=== PATIENT | female | born 1940 | race Caucasian/White ===

== ENCOUNTER 2016-08-01 09:41 | Emergency (ER) | payer MEDICARE ==
[~2016-08-01] VITALS: Ht 165.1 cm; Wt 105.0 kg
[~2016-08-01 09:41] MED LIST: ALL220TA PO; CIPR500T4 PO; SIMV20TA PO; TRAM50TA PO; VENL25TA14 PO
[2016-08-01 09:46] VITALS: BP 137/65; PULSE 72; RESP 18; TEMP 97.5; O2SAT 95
[2016-08-01] MEDS ORDERED: VENL25TA PO (09:54)
[2016-08-01] MEDS ORDERED: BP MED (09:54)
[2016-08-01] MEDS ORDERED: METF500T PO (09:54)
[2016-08-01] MEDS ORDERED: CHOLESTEROL MED (09:54)
--- NOTE | 2016-08-01 10:04 | PD ---
HPI Chief Complaint: Fall Time Seen by Provider: 09:54 Travel History International Travel<30 days: No Contact w/Intl Traveler<30days: No Traveled to known affect area: No History of Present Illness HPI Pleasant 76-year-old female here with complaint of headache, right knee pain after fall. Patient has a history of frequent falls when using the staircase. She was eating dinner on the upper floor of [employer] when she was walking up the steps and had a fall forward. She hit her head. No LOC. She notes a right sided headache since the fall. Also right sided knee contusion, but has been able to ambulate without any difficulty. Mild, no nausea vomiting PFSH Past Medical History Depression: Yes High Cholesterol: Yes Diabetes: Yes Patient Takes Glucophage: Yes Hypertension: Yes Neurologic: Yes (HX OF BRAIN ANERYSM- SURGERY FOR) Menopausal: Yes Past Surgical History Neurologic Surgery: Yes (BRAIN ANERYSM- METAL PLATE TO LEFT SIDE OF HEAD) Social History Alcohol Use: Yes (SOCIAL) Tobacco Use: No Substance Use: No Allergies-Medications (Allergen,Severity, Reaction): Coded Allergies: No Known Allergies (Unverified , 08/01/16) Reported Meds & Prescriptions Reported Meds & Active Scripts Active Reported Metformin (Metformin HCl) 500 Mg Tab Unknown Dose PO BIDPC With meals [Bp Med] Unknown Dose [Cholesterol Med] Unknown Dose Effexor (Venlafaxine HCl) 25 Mg Tab Unknown Dose PO Q12H Review of Systems Except as stated in HPI: all other systems reviewed are Neg Physical Exam Narrative GENERAL: Pleasant elderly female in no acute distress SKIN: Focused skin assessment warm/dry. HEAD: Abrasion to the right forehead. Normocephalic. EYES: Pupils equal and round. No scleral icterus. No injection or drainage. TMs clear bilaterally ENT: No nasal bleeding or discharge. Mucous membranes pink and moist. NECK: Supple without midline tenderness palpation CARDIOVASCULAR: Regular rate and rhythm. RESPIRATORY: No accessory muscle use. GASTROINTESTINAL: Obese MUSCULOSKELETAL: No obvious deformities. No edema. Right knee with contusion/ hematoma over the fibular head but no focal tenderness to palpation. Full pain- free range of motion of the knee without obvious ligamentous laxity. Normal gait. NEUROLOGICAL: Awake and alert. No obvious cranial nerve deficits. Motor grossly within normal limits. Normal speech. PSYCHIATRIC: Appropriate mood and affect; insight and judgment normal. Data Data Last Documented VS Vital Signs Date Time Temp Pulse Resp B/P Pulse Ox O2 Delivery O2 Flow Rate FiO2 08/01/16 09:46 97.5 72 18 137/[address] Brain W/O Iv Contrast(Rout) (08/01/16 ) MDM Medical Decision Making Medical Screen Exam Complete: Yes Emergency Medical Condition: Yes Medical Record Reviewed: Yes Differential Diagnosis 76-year-old female here with complaint of headache, right knee pain after fall. Fall as mechanical, no syncope. She did hit her head, given her age and persistent headache concern for skull fracture, ICH versus closed head injury. Exam of the right knee shows contusion, full range of motion does not warrant imaging to evaluate for fracture, she has been ambulatory since without any difficulty. Narrative Course CT of the brain showed post surgical changes but no acute abnormalities. Diagnosis Primary Impression: Closed head injury Qualified Code: S09.90XA - Closed head injury, initial encounter Additional Impressions: Contusion of right knee Qualified Code: S80.01XA - Contusion of right knee, initial encounter Fall Qualified Code: W19.XXXA - Fall, initial encounter Referrals: Primary Care Physician as needed Additional Instructions: Tylenol, ibuprofen as needed for headache or knee pain. Ice the knee 20 minutes at a time 3-4 times daily to help with pain and swelling. Med/Other Pt SpecificInfo: No Change to Meds Disposition: 01 DISCHARGE HOME Condition: Stable Sari Osborne MD Aug 01, 2016 10:04
--- NOTE | 2016-08-01 10:41 | RADHPO ---
EXAM DATE/TIME: 08/01/2016 10:20 [facility] COMPARISON: No previous studies available for comparison. INDICATIONS : Tripped and fell two times in one week. RADIATION DOSE: 65.41 CTDIvol (mGy) MEDICAL HISTORY : Aneurysm, intracranial. Hypertension. Diabetes. SURGICAL HISTORY : Metal plate on right side of head-brain aneurysm surgery. ENCOUNTER: Initial ACUITY: 1 week PAIN SCALE: 0/10 LOCATION: cranial TECHNIQUE: Multiple contiguous axial images were obtained of the head. Using automated exposure control and adj ustment of the mA and/or kV according to patient size, radiation dose was kept as low as reasonably a chievable to obtain optimal diagnostic quality images. FINDINGS: The examination demonstrates streak artifact from the patient's aneurysm clips in the middle cranial fossa. 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 The patient is post right-sided craniotomy. No acute intracranial hemorrhage is seen. No mass lesion is identified. No significant extra-axial fl uid collections are seen. The ventricular system is normal in size and configuration. The appearance of the posterior fossa is unremarkable. Osseous structures of the skull demonstrate the patient be post right-sided craniotomy. CONCLUSION: 1. 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 No acute intracranial abnormality seen. Vazquez Salazar MD on August 01, 2016 at 10:37 Board Certified Radiologist. This report was verified electronically.
== END 2016-08-01 10:50 | disposition home or self-care (01) ==
LOC: PHEFT 09:41
DX: S09.90XA Unspecified injury of head, initial encounter (principal); S80.01XA Contusion of right knee, initial encounter; E78.00 Pure hypercholesterolemia, unspecified; E11.9 Type 2 diabetes mellitus without complications; I10 Essential (primary) hypertension
CPT/HCPCS: 70450; 99284